=== PATIENT | male | born 1940 | race Caucasian/White ===

== ENCOUNTER 2017-07-20 10:36 | Outpatient (CLI) | payer MEDICARE ==
--- OUTSIDE RECORDS SUMMARY | 2017-07-20 10:47 | XMS | Clinical Summary ---
:1940 Author Organization [facility] Address [address] [place] [address] Phone Care Team Providers Name Role Phone , Primary Care Provider Unavailable Allergies Not on File Current Medications Not on file Active Problems Not on file Social History Tobacco Use Types Packs/Day Years Used Date Never Assessed Sex Assigned at Date Recorded Not on file Last Filed Vital Signs Not on file Plan of Treatment Not on file Results Not on filefrom Last 3 Months
--- NOTE | 2017-07-20 12:19 | RAD ---
CHEST TWO VIEWS: History: Dyspnea. Comparison: 05-24-17 FINDINGS: Lungs are clear. No pneumothorax or effusion. Cardiac silhouette and mediastinal contours are within normal limits. IMPRESSION: No acute intrathoracic abnormality. POS: [facility]
== END 2017-07-20 10:37 | disposition home or self-care (01) ==
LOC: RAD 10:36
PROVIDERS: ATTEND Internal Medicine Critical Care Medicine
DX: R06.00 Dyspnea, unspecified (principal)
CPT/HCPCS: 71020

== ENCOUNTER 2017-11-01 12:03 | Outpatient (CLI) | payer MEDICARE ==
--- NOTE | 2017-11-01 13:56 | RAD ---
CHEST PA AND LATERAL: History: History of pulmonary embolism and DVT in the past. Comparison: 07-20-17 FINDINGS: Heart size is within normal limits. The lungs are clear. Mild biapical pleural thickening. Atheroscle rosis of the aorta with some ectasia. IMPRESSION: Stable appearing chest. Atherosclerosis of the aorta with some ectasia. Stable biapical pleural thick ening. POS: [facility]
--- NOTE | 2017-11-01 14:32 | NM ---
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 This is a follow up evaluation. The patient is currently on anticoagulants and clinically, p atient notes condition has improved. Radiopharmaceuticals: 10.5 mCi Xenon 133, gas inhaled and 6.6 mCi Technetium 99M labelled MAA, IV. Comparison: Chest x-ray, 11-01-17. FINDINGS: There is normal uptake and distribution of radiotracer on the ventilation portion of the study with n ormal washout on the washout images. The perfusion portion of the study demonstrates a moderate sized perfusion defect involving the lateral aspect of the right midlung zone with a few small subsegmenta l defects seen within the left lung. The accompanying chest x-ray also obtained on today's date demon strates that the lungs are clear. IMPRESSION: Intermediate probability for pulmonary embolus. POS: [facility]
== END 2017-11-01 12:04 | disposition home or self-care (01) ==
LOC: NM 12:03
PROVIDERS: ATTEND Internal Medicine Critical Care Medicine
DX: I26.99 Other pulmonary embolism without acute cor pulmonale (principal); I70.0 Atherosclerosis of aorta; J92.9 Pleural plaque without asbestos; I77.819 Aortic ectasia, unspecified site
CPT/HCPCS: 71046; 78582; A9540; A9558

== ENCOUNTER 2018-04-06 12:32 | Outpatient (CLI) | payer MEDICARE ==
--- NOTE | 2018-04-06 13:49 | RAD ---
TWO VIEWS OF THE CHEST: DATE: 04/06/18. COMPARISON: 11/01/17. FINDINGS: Correlation to be made with ventilation perfusion lung scan, clinical concern for pulmonary embolism. FINDINGS: There is mild atherosclerotic calcification in the aortic arch. There is mild elevation of the left hemidiaphragm. These findings are stable. There is no pneumothorax, pleural fluid, focal consolidat ion, or alveolar edema. IMPRESSION: Stable 2- view examination of the chest. POS: [facility]
--- NOTE | 2018-04-06 15:03 | NM ---
VQ SCAN: HISTORY: Other pulmonary embolism without acute cor pulmonale. TECHNIQUE: A ventilation perfusion scan was performed using 15 mCi Xenon 133 by inhalation for the ventilation s tudy followed by the intravenous administration of 6 mCi Technetium 99m-MAA for the perfusion scan. FINDINGS: Comparison is made with the VQ scan of 11/11/17. Correlation was made with the chest radiograph of e same date. There is fairly homogeneous tracer distribution to the lungs bilaterally on the ventila tion study with tracer retention on the washout phase. Multiple segmental and subsegmental pleural-based defects in the lung pathak on the perfusion scan no leela on the previous exam are redemonstrated. No new defects are seen. IMPRESSION: Stable exam since 11/01/17. POS: [facility]
== END 2018-04-06 12:33 | disposition home or self-care (01) ==
LOC: NM 12:32
PROVIDERS: ATTEND Internal Medicine Critical Care Medicine
DX: I26.99 Other pulmonary embolism without acute cor pulmonale (principal)
CPT/HCPCS: 71046; 78582; A9540; A9558

== ENCOUNTER 2021-05-06 11:18 | Emergency (ER) | payer MEDICARE | END 2021-05-06 15:54 | disposition home or self-care (01) | LOC: ERS 11:18 | DX: L03.116 Cellulitis of left lower limb (principal); E03.9 Hypothyroidism, unspecified; K21.9 Gastro-esophageal reflux disease without esophagitis; E78.5 Hyperlipidemia, unspecified; E78.00 Pure hypercholesterolemia, unspecified; I10 Essential (primary) hypertension; Z79.82 Long term (current) use of aspirin; Z79.899 Other long term (current) drug therapy; M79.89 Other specified soft tissue disorders ==

== ENCOUNTER 2021-05-12 12:46 | Inpatient (IN) | payer MEDICARE ==
[2021-05-12 16:51] VITALS: BMI 42.6
[2021-05-14 12:26] VITALS: BP 148/81; TEMP 97.4
== END 2021-05-14 11:30 | disposition home or self-care (01) | DRG 603 ==
LOC: ERS 12:46 → T4-A 15:06
PROVIDERS: ADMIT Internal Medicine; ATTEND Internal Medicine
DX: L03.116 Cellulitis of left lower limb (principal); Z68.41 Body mass index [BMI] 40.0-44.9, adult; E03.9 Hypothyroidism, unspecified; S80.12XA Contusion of left lower leg, initial encounter; K21.9 Gastro-esophageal reflux disease without esophagitis; N40.0 Benign prostatic hyperplasia without lower urinary tract symptoms; E78.5 Hyperlipidemia, unspecified; I25.10 Atherosclerotic heart disease of native coronary artery without angina pectoris; I89.0 Lymphedema, not elsewhere classified; I12.9 Hypertensive chronic kidney disease with stage 1 through stage 4 chronic kidney disease, or unspecified chronic kidney disease; E66.01 Morbid (severe) obesity due to excess calories; N18.2 Chronic kidney disease, stage 2 (mild); H40.9 Unspecified glaucoma; Z86.718 Personal history of other venous thrombosis and embolism; Z79.899 Other long term (current) drug therapy; Z98.890 Other specified postprocedural states; Z86.711 Personal history of pulmonary embolism
CPT/HCPCS: 36415; 80053; 83605; 85025; 87040; 96365; 96375; J2543; J3370; J3490

== ENCOUNTER 2024-08-28 14:33 | Inpatient (IN) | payer MEDICARE ==
[2024-08-28] MEDS ORDERED: Ondansetron PF 4 MG/2 ML Vial IVP PRN (20:59)
[2024-08-28] MEDS ORDERED: Acetaminophen 650 MG Suppository PR PRN (20:59)
[2024-08-28] MEDS ORDERED: Ondansetron ODT 4 MG TAB PO PRN (20:59)
[2024-08-28] MEDS ORDERED: Ipratropium/Albuterol 3 ML NEB NEB PRN (21:05)
[2024-08-28 21:47] LABS: Magnesium 2.3 mg/dL (1.6-2.6)
[2024-08-28 21:53] LABS: Troponin I 0.035 ng/mL (< 0.028)
[2024-08-28 23:03] VITALS: BMI 44.6
[2024-08-28] MEDS: Acetaminophen 325 MG TAB PO SCH (23:10)
[2024-08-28] MEDS: Famotidine/PF 20 mg/2ml Vial SLOW IVP SCH (23:36)
[2024-08-28] MEDS: Famotidine 20 MG TAB PO SCH (23:36)
[2024-08-29 02:43] LABS: Troponin I 0.036 ng/mL (< 0.028)
[2024-08-29 04:04] LABS: #Basophils Less than 0.03 10x3/uL (0.0-0.2); #Eosinophils Less than 0.03 10x3/uL (0.0-0.7); %Basophils 0.3 % (0.0-1.0); %Lymphocytes 14.5 % (21.0-51.0); %Monocytes 5.9 % (0.0-10.0); %Neutrophils 78.6 % (42.0-75.0); Hematocrit 40.8 % (42.0-52.0); Hemoglobin 12.9 g/dL (14.0-18.0); Mean Corpuscular HGB CONC 31.6 g/dL (32.0-36.0); Mean Corpuscular Hemoglobin 28.6 pg (27.0-31.0); Mean Corpuscular Volume 90.5 fL (78.0-98.0); Mean Platelet Volume 10.3 fL (7.4-10.4); Platelet Count 168 10x3/uL (130-400); RBC Distribution Width 13.7 % (11.5-14.5); Red Blood Cell (RBC) Count 4.51 mill/uL (4.70-6.10)
[2024-08-29] MEDS: Guaifenesin DM 100-10/5 ML UDCUP PO PRN (04:17)
[2024-08-29] MEDS: Benzocaine/Menthol 1 LOZ LOZ PO PRN (04:17)
[2024-08-29 04:30] LABS: ALT (SGPT) 15 U/L (8-55); AST (SGOT) 21 U/L (5-34); Albumin 2.9 g/dL (3.4-4.8); Alkaline Phosphatase 41 U/L (40-110); Anion Gap 12 mmol/L (10-20); BUN (Urea Nitrogen) 20 mg/dL (8.4-25.7); Bilirubin, Total 0.8 mg/dL (0.2-1.2); Calc. Creatinine Clearance 98 mL/min (70-130); Calcium 8.3 mg/dL (7.8-10.44); Carbon Dioxide 28 mmol/L (23-31); Chloride 99 mmol/L (98-107); Estimated GFR 74; Globulin 3.7 g/dL (2.4-3.5); Glucose 132 mg/dL (83-110); Potassium 4.3 mmol/L (3.5-5.1); Protein, Total 6.6 g/dL (5.8-8.1); Sodium 135 mmol/L (136-145)
[2024-08-29] MEDS ORDERED: niCARdipine 25 MG in Sodium Chloride 0.9% 250 ML 250 ML IVPB SCH (05:00)
[2024-08-29] MEDS: Furosemide 40 MG (4 mL) VIAL SLOW IVP SCH (05:43)
[2024-08-29] MEDS: Levothyroxine Sodium 50 MCG TAB PO SCH (06:54)
[2024-08-29] MEDS: Aspirin Chewable 81 MG TAB PO SCH (09:18)
[2024-08-29] MEDS: Doxycycline 100 MG CAP PO SCH (09:18)
[2024-08-29] MEDS: Losartan 25 MG TAB PO SCH (09:18)
[2024-08-29] MEDS: Pantoprazole DR 40 MG TAB PO SCH (09:19)
[2024-08-29] MEDS: Rivaroxaban 10 MG TAB PO SCH (09:19)
[2024-08-29] MEDS: Perflutren Lipid Microspheres 1.1 MG/ML VIAL ONE (15:30)
[2024-08-29] MEDS: Aspirin 81 mg Enteric Coated Tablet PO SCH (20:56)
[2024-08-29] MEDS: Tamsulosin HCl 0.4 MG CAP PO SCH (20:56)
[2024-08-29] MEDS: Atorvastatin Calcium 40 MG TAB PO SCH (20:56)
[2024-08-29] MEDS: Latanoprost 0.005% Ophth Soln 2.5 ml Bottle EA EYE SCH (22:07)
[2024-08-30 04:42] LABS: #Basophils 0.03 10x3/uL (0.0-0.2); %Basophils 0.3 % (0.0-1.0); %Eosinophils 0.5 % (0.0-10.0); %Lymphocytes 10.8 % (21.0-51.0); %Neutrophils 78.6 % (42.0-75.0); Hematocrit 41.8 % (42.0-52.0); Hemoglobin 13.4 g/dL (14.0-18.0); Mean Corpuscular HGB CONC 32.1 g/dL (32.0-36.0); Mean Corpuscular Hemoglobin 28.9 pg (27.0-31.0); Mean Corpuscular Volume 90.3 fL (78.0-98.0); Mean Platelet Volume 10.8 fL (7.4-10.4); Platelet Count 235 10x3/uL (130-400); RBC Distribution Width 13.8 % (11.5-14.5); Red Blood Cell (RBC) Count 4.63 mill/uL (4.70-6.10)
[2024-08-30 05:01] LABS: Anion Gap 18 mmol/L (10-20); BUN (Urea Nitrogen) 27 mg/dL (8.4-25.7); Calc. Creatinine Clearance 57 mL/min (70-130); Calcium 8.6 mg/dL (7.8-10.44); Carbon Dioxide 26 mmol/L (23-31); Chloride 99 mmol/L (98-107); Estimated GFR 66; Glucose 137 mg/dL (83-110); Potassium 3.9 mmol/L (3.5-5.1); Sodium 139 mmol/L (136-145)
[2024-08-30] MEDS: Dapagliflozin Propanediol 10 MG TAB PO SCH (08:44)
[2024-08-30] MEDS: Furosemide 40 MG (4 mL) VIAL SLOW IVP SCH (14:12)
[2024-08-30] MEDS: Mupirocin 2% Ointment 22 GM Tube TOP SCH (15:20)
[2024-08-31 04:43] LABS: #Basophils 0.04 10x3/uL (0.0-0.2); %Basophils 0.5 % (0.0-1.0); %Eosinophils 3.3 % (0.0-10.0); %Lymphocytes 17.9 % (21.0-51.0); %Monocytes 8.8 % (0.0-10.0); %Neutrophils 68.8 % (42.0-75.0); Hematocrit 44.7 % (42.0-52.0); Mean Corpuscular HGB CONC 31.3 g/dL (32.0-36.0); Mean Corpuscular Volume 92.7 fL (78.0-98.0); Mean Platelet Volume 10.6 fL (7.4-10.4); Platelet Count 222 10x3/uL (130-400); RBC Distribution Width 14.4 % (11.5-14.5); Red Blood Cell (RBC) Count 4.82 mill/uL (4.70-6.10)
[2024-08-31 05:18] LABS: Anion Gap 16 mmol/L (10-20); BUN (Urea Nitrogen) 26 mg/dL (8.4-25.7); Calc. Creatinine Clearance 74 mL/min (70-130); Calcium 8.7 mg/dL (7.8-10.44); Carbon Dioxide 28 mmol/L (23-31); Chloride 101 mmol/L (98-107); Estimated GFR 55; Glucose 105 mg/dL (83-110); Potassium 4.8 mmol/L (3.5-5.1); Sodium 140 mmol/L (136-145)
[2024-08-31] MEDS: Furosemide 40 MG (4 mL) VIAL SLOW IVP SCH (07:12)
[2024-08-31] MEDS: Cefepime 1 GM in Sodium Chloride 0.9% 100 ML IVPB SCH (12:19)
[2024-08-31] MEDS: LevoFLOXacin 750 mg/D5W 750 MG in Premix 1 BAG IVPB SCH (12:53)
[2024-08-31] MEDS: Aspirin 81 mg Enteric Coated Tablet PO SCH (20:52)
[2024-09-01 04:30] LABS: #Basophils 0.04 10x3/uL (0.0-0.2); %Basophils 0.4 % (0.0-1.0); %Eosinophils 3.2 % (0.0-10.0); %Lymphocytes 14.1 % (21.0-51.0); %Monocytes 7.4 % (0.0-10.0); Hemoglobin 12.5 g/dL (14.0-18.0); Mean Corpuscular HGB CONC 31.3 g/dL (32.0-36.0); Mean Corpuscular Hemoglobin 28.8 pg (27.0-31.0); Mean Corpuscular Volume 92.2 fL (78.0-98.0); Mean Platelet Volume 10.4 fL (7.4-10.4); Platelet Count 205 10x3/uL (130-400); RBC Distribution Width 14.2 % (11.5-14.5); Red Blood Cell (RBC) Count 4.34 mill/uL (4.70-6.10)
[2024-09-01 04:48] LABS: Anion Gap 13 mmol/L (10-20); BUN (Urea Nitrogen) 25 mg/dL (8.4-25.7); Calc. Creatinine Clearance 95 mL/min (70-130); Calcium 8.3 mg/dL (7.8-10.44); Carbon Dioxide 31 mmol/L (23-31); Chloride 102 mmol/L (98-107); Estimated GFR 77; Glucose 129 mg/dL (83-110); Sodium 142 mmol/L (136-145)
[2024-09-01] MEDS: Furosemide 40 MG TAB PO SCH (10:17)
[2024-09-01] MEDS ORDERED: Polyethylene Glycol 3350 17 GM Packet PO PRN (10:24)
[2024-09-02 03:33] LABS: #Basophils 0.03 10x3/uL (0.0-0.2); %Basophils 0.3 % (0.0-1.0); %Eosinophils 4.1 % (0.0-10.0); %Lymphocytes 16.5 % (21.0-51.0); %Neutrophils 71.1 % (42.0-75.0); Hematocrit 40.4 % (42.0-52.0); Hemoglobin 12.6 g/dL (14.0-18.0); Mean Corpuscular HGB CONC 31.2 g/dL (32.0-36.0); Mean Corpuscular Hemoglobin 28.6 pg (27.0-31.0); Mean Corpuscular Volume 91.8 fL (78.0-98.0); Mean Platelet Volume 10.5 fL (7.4-10.4); Platelet Count 200 10x3/uL (130-400); RBC Distribution Width 14.4 % (11.5-14.5)
[2024-09-02 03:50] LABS: Anion Gap 10 mmol/L (10-20); BUN (Urea Nitrogen) 23 mg/dL (8.4-25.7); Calc. Creatinine Clearance 112 mL/min (70-130); Calcium 8.4 mg/dL (7.8-10.44); Carbon Dioxide 32 mmol/L (23-31); Chloride 102 mmol/L (98-107); Estimated GFR 85; Glucose 108 mg/dL (83-110); Potassium 4.3 mmol/L (3.5-5.1); Sodium 140 mmol/L (136-145)
[2024-09-03] MEDS: Gabapentin 300 MG CAP PO SCH ×2 (00:32→20:35)
[2024-09-03 04:04] LABS: #Basophils 0.05 10x3/uL (0.0-0.2); %Basophils 0.4 % (0.0-1.0); %Eosinophils 2.7 % (0.0-10.0); %Lymphocytes 11.1 % (21.0-51.0); %Monocytes 7.3 % (0.0-10.0); %Neutrophils 77.5 % (42.0-75.0); Hemoglobin 13.6 g/dL (14.0-18.0); Mean Corpuscular HGB CONC 31.6 g/dL (32.0-36.0); Mean Corpuscular Volume 91.7 fL (78.0-98.0); Mean Platelet Volume 10.6 fL (7.4-10.4); Platelet Count 208 10x3/uL (130-400); RBC Distribution Width 14.4 % (11.5-14.5); Red Blood Cell (RBC) Count 4.69 mill/uL (4.70-6.10)
[2024-09-03 04:33] LABS: Anion Gap 14 mmol/L (10-20); BUN (Urea Nitrogen) 25 mg/dL (8.4-25.7); Calc. Creatinine Clearance 92 mL/min (70-130); Calcium 8.6 mg/dL (7.8-10.44); Carbon Dioxide 29 mmol/L (23-31); Chloride 100 mmol/L (98-107); Estimated GFR 72; Glucose 113 mg/dL (83-110); Potassium 4.1 mmol/L (3.5-5.1); Sodium 139 mmol/L (136-145)
[2024-09-03] MEDS: predniSONE 20 MG TAB PO SCH (15:06)
[2024-09-04 12:34] VITALS: BMI 42.6
[2024-09-04] MEDS: Sodium Chloride 0.9% 500 ML IV SCH (14:54)
[2024-09-04 16:46] VITALS: BP 94/50; TEMP 97.2
== END 2024-09-04 18:30 | disposition swing bed (61) | DRG 291 ==
LOC: 2NO 20:52
PROVIDERS: ADMIT Hospitalist; ATTEND Internal Medicine
DX: I13.0 Hypertensive heart and chronic kidney disease with heart failure and stage 1 through stage 4 chronic kidney disease, or unspecified chronic kidney disease (principal); G93.41 Metabolic encephalopathy; J96.01 Acute respiratory failure with hypoxia; I50.23 Acute on chronic systolic (congestive) heart failure; J44.1 Chronic obstructive pulmonary disease with (acute) exacerbation; N30.00 Acute cystitis without hematuria; Z68.41 Body mass index [BMI] 40.0-44.9, adult; E03.9 Hypothyroidism, unspecified; N40.0 Benign prostatic hyperplasia without lower urinary tract symptoms; K21.9 Gastro-esophageal reflux disease without esophagitis; I25.10 Atherosclerotic heart disease of native coronary artery without angina pectoris; E78.5 Hyperlipidemia, unspecified; R53.81 Other malaise; J20.9 Acute bronchitis, unspecified; E66.01 Morbid (severe) obesity due to excess calories; Z98.890 Other specified postprocedural states; Z86.711 Personal history of pulmonary embolism; Z95.5 Presence of coronary angioplasty implant and graft
CPT/HCPCS: 0439T; 36415; 36416; 80048; 80053; 83735; 83880; 84484; 85025; 94760; J0692; J1940; J1956; J7030; J7512; Q9957

== ENCOUNTER 2025-03-08 10:38 | Outpatient (CLI) | payer MEDICARE | END 2025-03-08 10:39 | disposition home or self-care (01) | LOC: RAD 10:38 | PROVIDERS: ATTEND Internal Medicine Cardiovascular Disease | DX: Z48.812 Encounter for surgical aftercare following surgery on the circulatory system (principal); Z95.0 Presence of cardiac pacemaker | CPT/HCPCS: 71046 ==